=== PATIENT | male | born 1970 | race Caucasian/White ===

== ENCOUNTER 2018-01-19 16:53 | Emergency (ER) | payer MEDICARE, MEDICAID ==
[2018-01-19] MEDS ORDERED: Morphine 10 MG/ML VIAL ONE (17:19)
[2018-01-19 17:23] LABS: Bilirubin Small (Negative); Blood, Urine Negative (Negative); Clarity Slightly Cloudy (Clear); Glucose, Urine (Dipstick) Negative (Negative); Leukocyte Negative (Negative); Nitrite Negative (Negative); Protein, Urine (Dipstick) 100 mg/dL (Neg-Trace); Specific Gravity, Urine 1.015 (1.005-1.030); pH, Urine 7.5 (5.0-9.0)
[2018-01-19] MEDS ORDERED: Ketorolac Tromethamine 30 MG/ML VIAL ONE (17:35)
[2018-01-19] MEDS ORDERED: Ondansetron PF 4 MG/2 ML Vial ONE (17:35)
[2018-01-19 17:37] LABS: Bacteria/HPF None Seen HPF (None Seen); Crystals/HPF None Seen HPF (Negative); Hyaline Casts/LPF NONE SEEN LPF (0-3 Hyaline); Other Casts/LPF None Seen LPF (0-3 Hyaline); Oval Fat Bodies/HPF None Seen HPF (None Seen); Renal Epithelial None Seen HPF (0-3); Sperm/HPF None Seen HPF (None Seen); Squamous Epithelial 0-3 HPF (0-3); Transitional Epithelial NONE SEEN HPF (0-3); Trichomonas/HPF None Seen HPF (None Seen); WBC/HPF None Seen HPF (0-3); Yeast-All Forms None Seen HPF (None Seen)
[2018-01-19] MEDS ORDERED: Morphine 4 MG/ML VIAL ONE (17:37)
[2018-01-19] MEDS ORDERED: Piperacillin/Tazobactam 3.375 GM VIAL ONE (17:37)
[2018-01-19] MEDS ORDERED: Sodium Chloride 0.9% 100 ML ONE (17:39)
[2018-01-19 17:47] LABS: PTT 29.8 SEC (22.9-36.1); Prothrombin Time 13.4 SEC (12.0-14.7)
[2018-01-19 17:51] LABS: ALT (SGPT) 23 U/L (8-55); AST (SGOT) 17 U/L (5-34); Albumin 4.2 g/dL (3.5-5.0); Alkaline Phosphatase 85 U/L (40-150); Anion Gap 15 mmol/L (10-20); BUN (Urea Nitrogen) 9 mg/dL (8.9-20.6); Bilirubin, Total 1.3 mg/dL (0.2-1.2); CK (CPK) 236 U/L (30-200); Calc. Creatinine Clearance 0 mL/min (70-130); Calcium 9.5 mg/dL (7.8-10.44); Carbon Dioxide 24 mmol/L (22-29); Chloride 103 mmol/L (98-107); Estimated GFR-MDRD Greater than 90; Globulin 3.4 g/dL (2.4-3.5); Glucose 98 mg/dL (70-105); Lipase 6 U/L (8-78); Potassium 3.4 mmol/L (3.5-5.1); Protein, Total 7.6 g/dL (6.0-8.3); Sodium 139 mmol/L (136-145)
[2018-01-19 17:58] LABS: Band 1 % (5-11); Hemoglobin 15.5 g/dL (14.0-18.0); Lymphocytes 11 % (21-51); MDiff Complete? YES; Mean Corpuscular HGB CONC 34.3 g/dL (32.0-36.0); Mean Corpuscular Hemoglobin 31.1 pg (27.0-31.0); Mean Corpuscular Volume 90.7 fL (78.0-98.0); Mean Platelet Volume 10.1 fL (7.4-10.4); Monocytes 9 % (0-10); Neutrophil 79 % (42-75); Platelet Count 319 thou/uL (130-400); RBC Distribution Width 12.5 % (11.5-14.5); Red Blood Cell (RBC) Count 4.99 mill/uL (4.70-6.10); White Blood Cell (WBC) Count 34.5 thou/uL (4.8-10.8)
--- NOTE | 2018-01-19 18:21 | CT ---
CT ABDOMEN AND PELVIS: 01/19/2018 HISTORY: Three days of abdominal pain with nausea, vomiting, and diarrhea. COMPARISON: None. TECHNIQUE: Serial axial CT imaging at 5 mm intervals, from the lung bases through the pubic symphysis, with IV c ontrast. Coronal and sagittal reformatted imaging obtained. FINDINGS: The imaged lung bases are grossly unremarkable. No free intraperitoneal air. Subcentimeter hypodensity noted in the right lobe of the liver, on image 19, measuring 5 mm, too smal l to characterize. Gallbladder appears grossly unremarkable. No normal spleen is visualized. There is a round soft tissue density in the left upper quadrant, measuring 1.9 cm, which could reflect a f ocus of splenic tissue. The pancreas, adrenal glands, and kidneys are grossly unremarkable. There is small volume free fluid in the pelvis, posterior to the seminal vesicles. There is a segment of the sigmoid colon, which demonstrates prominent wall thickening, diverticular d isease, and prominent pericolonic fat stranding. This involves a segment of the sigmoid colon, which measures at least 10 cm in length. These findings are suspicious for acute diverticulitis. Immedia tely superior to this is a markedly thick-walled segment of small bowel, as seen on axial images 44 t hrough 50. Adjacent to these markedly thick-walled loops of small bowel, which abut the superior asp ect of the inflamed colon, are extensive mesenteric fat stranding and scattered areas of fluid within the mesentery. There is a tiny fluid collection within the mesentery, adjacent to thick-walled loop s of small bowel, seen centrally, on image 54, measuring 1.5 cm. Small bowel loops proximal to this, within the mid left abdomen, are distended and fluid-filled. Distal small bowel loops are decompres sed. The appendix appears grossly unremarkable. The duodenum appears mildly thickened and/or decomp ressed. No lymphadenopathy is seen within the abdomen/pelvis. The vascular structures appear patent. No susan inable fluid collection/abscess. The osseous structures demonstrate no acute findings. IMPRESSION: 1. A 10 cm segment of thick-walled and inflamed sigmoid colon with prominent adjacent pericolonic fa t stranding, suggesting acute sigmoid diverticulitis. Superior to this are numerous markedly thick-w alled loops of small bowel with intermixed mesenteric free fluid and inflammatory stranding, which ma y signify secondary inflammatory change and ileus. Alternatively, this could represent a second focu s of inflammatory change and/or ischemia/hemorrhage within the small bowel. Clinical correlation is essential. No drainable abscess or evidence of free intraperitoneal air is appreciated. Recommend a surgical consultation. CODE T POS: [id number]
[2018-01-19] MEDS ORDERED: Fentanyl 100 MCG/2 ML VIAL ONE (18:37)
== END 2018-01-19 19:05 | disposition short-term general hospital (02) ==
LOC: BURERS 16:53
DX: A41.9 Sepsis, unspecified organism (principal); K57.32 Diverticulitis of large intestine without perforation or abscess without bleeding; I10 Essential (primary) hypertension; F31.9 Bipolar disorder, unspecified; F17.210 Nicotine dependence, cigarettes, uncomplicated; Z86.718 Personal history of other venous thrombosis and embolism
CPT/HCPCS: 74177; 80053; 81003; 81015; 82550; 83605; 83690; 85025; 85610; 85730; 87040; 87086; 93005; 96365; 96375; J1885; J2270; J2405; J2543; J3010; J3370; J7050

== ENCOUNTER 2018-07-16 11:13 | Emergency (ER) | payer MEDICARE, MEDICAID ==
[2018-07-16] MEDS ORDERED: Ketorolac Tromethamine 30 MG/ML VIAL ONE (11:37)
== END 2018-07-16 12:00 | disposition home or self-care (01) ==
LOC: BURERS 11:13
DX: G89.18 Other acute postprocedural pain (principal); F31.9 Bipolar disorder, unspecified; F17.210 Nicotine dependence, cigarettes, uncomplicated; I10 Essential (primary) hypertension; Z86.718 Personal history of other venous thrombosis and embolism; Z79.899 Other long term (current) drug therapy; Z79.891 Long term (current) use of opiate analgesic
CPT/HCPCS: 96372; J1885

== ENCOUNTER 2018-09-12 11:53 | Emergency (ER) | payer MEDICARE, MEDICAID ==
--- NOTE | 2018-09-12 18:56 | CT ---
CT OF THE BRAIN WITHOUT CONTRAST: 09/12/18 Comparison is made with the 05/09/17 study. Old encephalomalacia is seen in the frontal lobes bilateral ly. There is another area of encephalomalacia in the right frontal lobe near the vertex. These findin gs were present on the prior study and are chronic in nature and presumably due to a prior ischemic i nsult. There is no evidence of acute CVA, mass, or edema. The ventricular sizes are normal. No bleedi ng was seen. The calvarium appears intact. IMPRESSION: Chronic ischemic changes but no acute findings POS: HOME
--- NOTE | 2018-09-12 18:59 | CT ---
CT OF THE CERVICAL SPINE WITHOUT CONTRAST: 09/12/[address] of the cervical spine was performed. No fracture, dislocation, or acute bony change was see n. The soft tissues are normal in thickness and the C1 to dens distance is normal. There has been a p rior anterior cervical fusion at C5-C6 with an appropriately positioned synthetic disc. This operativ e site is normal in appearance. There is loss of the normal cervical lordosis. Findings by level foll ow: C1-C2: No acute findings. C2-C3: No acute findings. C3-C4: Slight left foraminal narrowing. C4-C5: No acute findings C5-C6: Mild left foraminal narrowing. C6-C7: Mild right foraminal narrowing. C7-T1: No acute findings. IMPRESSION: Straightening of the cervical spine but no evidence of acute traumatic change. POS: HOME
--- NOTE | 2018-09-12 19:30 | CT ---
CT OF THE THORACIC SPINE: 09/12/[address] of the thoracic spine was done for evaluation following trauma. Axial slices were acquired followed by coronal and sagittal reconstructions. No acute fracture was appreciated. The disc spaces were unremarkable. Small anterior osteophytes are seen at most levels anteriorly. 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 A bony density protrudes into the spinal canal and causes a degree of lateral recess stenosis and wh ile I do not see an acute injury here, it would be easier to damage the cord in this position due to slight compression. An MRI would be useful to tell if there is any neural damage, particularly if he had any myelopathic symptoms. The finding does appear to be longstanding, however. IMPRESSION: 1. No definite acute traumatic findings. 2. 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 If there are any neurologica l symptoms at all, I would consider doing an MRI to check out the spinal cord at this level. Findings discussed with Dr. Savage at 1245 on 09/12/18. POS: HOME
== END 2018-09-12 12:59 | disposition home or self-care (01) ==
LOC: BURERS 11:53
DX: S16.1XXA Strain of muscle, fascia and tendon at neck level, initial encounter (principal); S01.01XA Laceration without foreign body of scalp, initial encounter; I10 Essential (primary) hypertension; F31.9 Bipolar disorder, unspecified; F17.210 Nicotine dependence, cigarettes, uncomplicated; Z86.718 Personal history of other venous thrombosis and embolism; Z79.899 Other long term (current) drug therapy; W22.8XXA Striking against or struck by other objects, initial encounter
CPT/HCPCS: 70450; 72125; 72128

== ENCOUNTER 2018-12-01 13:31 | Emergency (ER) | payer MEDICARE, MEDICAID ==
[2018-12-01] MEDS ORDERED: Lidocaine 4% Cream 5 GM TUBE w/ Tegaderm ONE (13:46)
[2018-12-01] MEDS ORDERED: Ketorolac Tromethamine 60 MG/2 ML VIAL ONE (13:47)
[2018-12-01] MEDS ORDERED: Triple Antibiotic Oint 1 GM Packet ONE ×2 (14:30→14:32)
--- NOTE | 2018-12-01 20:49 | CT ---
CT OF THE BRAIN WITHOUT CONTRAST: Date: 12-01-18 Computed tomography of the brain was done without IV contrast. Comparison: 09-12-18, 05-09-17 FINDINGS: No intracranial bleeding or extraaxial hematoma was seen. There is no sign of edema or mass. Encephal omalacia from an old right frontal stroke was noted. There is bifrontal atrophy, particularly in the inferior portions of each frontal lobe. All of these findings were present on older scans. The ventri cles are normal in size with no sift. No findings suggestive of acute stroke was seen. The calvarium appears intact with no sign of fracture. The visible paranasal sinuses are clear. There is chronic op acification of the right mastoid air cells, visible on many prior scans. IMPRESSION: 1. No acute intracranial findings. 2. 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 POS: HOME
--- NOTE | 2018-12-01 21:00 | CT ---
CT OF THE CERVICAL SPINE: Date: 12-01-[address] of the cervical spine was done following trauma. Axial slices were acquired followed by cor onal and sagittal reconstructions. FINDINGS: There has been a prior anterior cervical fusion at C5-6. The synthetic disc is in place and normal po sition. Mild disc space narrowing is seen at all other cervical levels. There is loss of the normal c ervical lordosis and the C1-2 dens distance is normal. The soft tissues are normal in thickness. Find ings by level follow: C1-2: No acute findings. C2-3: Moderate left foraminal narrowing due to osteophytes. C4-5: No acute findings. C5-6: Synthetic disc in place. Mild to moderate bilateral foraminal narrowing. C6-7: Mild to moderate right foraminal narrowing. C7-T1: No acute findings. T1-2: No acute findings. T2-3: No acute findings. T3-4: No acute findings. The lung apices show no acute change. The soft tissues of the neck showed a few extra nodes, which is often seen, but the findings were bilateral and symmetrical and probable hold no current significanc e. IMPRESSION: Straightening of the cervical spine and degenerative changes as noted. No acute traumatic findings ot [facility]. POS: HOME
== END 2018-12-01 14:30 | disposition home or self-care (01) ==
LOC: BURERS 13:31
DX: S08.0XXA Avulsion of scalp, initial encounter (principal); S13.9XXA Sprain of joints and ligaments of unspecified parts of neck, initial encounter; I10 Essential (primary) hypertension; Z86.718 Personal history of other venous thrombosis and embolism; F31.9 Bipolar disorder, unspecified; F17.210 Nicotine dependence, cigarettes, uncomplicated; Z79.899 Other long term (current) drug therapy; W22.8XXA Striking against or struck by other objects, initial encounter
CPT/HCPCS: 70450; 72125; 96372; J1885